=== PATIENT | male | born 1995 | race Hispanic/Latino ===

== ENCOUNTER 2021-10-12 14:43 | Emergency (ER) | payer SELFPAY ==
[2021-10-12 15:55] LABS: Urine Blood Negative (Negative); Urine Glucose Negative (Negative); Urine Protein Negative (Negative)
--- NOTE | 2021-10-12 16:50 | RAD REPORT ---
EXAM DESCRIPTION: US - Scrotum Testicles - 10/12/2021 4:38 pm CLINICAL HISTORY: Testicular pain COMPARISON: None FINDINGS: Right testicle measures 4.5 x 2.1 x 3.5 centimeters. Echotexture is homogeneous. Normal bl ood flow Left testicle measures 4 x 2.4 x 2.8 centimeters. Echotexture is homogeneous. Normal blood flow The epididymides are normal in size and echotexture. Normal blood flow is seen. IMPRESSION: Unremarkable exam
--- NOTE | 2021-10-12 17:00 | ER ---
Nurse's Notes [facility] Name: Trevon Ruiz Age: 25 yrs Sex: Male : 1995 Arrival Date: 10/12/2021 Time: 14:44 Bed 12 Private MD: Diagnosis: Groin pain. Right scrotal pain Presentation: 10/12 15:13 Chief complaint: Patient states: he is having testicular pain that began yesterday ap3 morning. patient is also reporting right testicular swelling. Coronavirus screen: At this time, the client does not indicate any symptoms associated with coronavirus-19. Ebola Screen: No symptoms or risks identified at this time. Initial Sepsis Screen: Does the patient meet any 2 criteria? No. Patient's initial sepsis screen is negative. Does the patient have a suspected source of infection? No. Patient's initial sepsis screen is negative. Risk Assessment: Do you want to hurt yourself or someone else? Patient reports no desire to harm self or others. Onset of symptoms was October 11, 2021. 15:13 Method Of Arrival: Ambulatory ap3 15:13 Acuity: MATILDE 2 ap3 Triage Assessment: 15:18 General: Appears uncomfortable, Behavior is calm, cooperative. Pain: Complains of pain ap3 in right testicle Pain began gradually, 1 day ago. Neuro: Level of Consciousness is awake, alert, obeys commands, Oriented to person, place, time, situation. Cardiovascular: Patient's skin is warm and dry. Respiratory: Airway is patent Respiratory effort is even, unlabored. GI: Patient currently denies nausea, vomiting. Historical: - Allergies: 15:17 No Known Allergies; ap3 - Home Meds: 15:17 None [Active]; ap3 - PMHx: 15:17 None; ap3 - Immunization history:: Client reports receiving the 1st dose of the Covid vaccine. - Social history:: Smoking status: Patient denies any tobacco usage or history of. Screenin:19 Abuse screen: Denies threats or abuse. Nutritional screening: No deficits noted. ap3 Tuberculosis screening: No symptoms or risk factors identified. Vital Signs: 15:12 BP 137 / 85; Pulse 71; Resp 18; Temp 98.0; Pulse Ox 100% ; ap3 ED Course: 14:44 Patient arrived in ED. as 15:17 Triage completed. ap3 15:17 Adelfo De Los Santos NP is PHCP. pm1 15:17 Jesús Salazar MD is Attending Physician. pm1 15:19 Arm band placed on right wrist. ap3 15:19 Patient has correct armband on for positive identification. Placed in gown. Bed in low ap3 position. Call light in reach. Side rails up X 1. Pulse ox on. NIBP on. Door closed. Noise minimized. 16:40 US Scrotum Testicles In Process Unspecified. EDMS 16:43 Loree Blanca, RN is Primary Nurse. iw Administered Medications: No medications were administered Outcome: 17:00 Discharge ordered by . pm1 17:20 Patient left the ED. iw Signatures: Dispatcher [employer] EDMS Parris Vega as Loree Blanca, RN RN iw Adelfo De Los Santos, LEONARDO [employer]ER pm1 Erica Smallwood RN RN ap3
--- NOTE | 2021-10-12 17:00 | EDPHYS ---
Physician Documentation [facility] Name: Trevon Ruiz Age: 25 yrs Sex: Male : 1995 Arrival Date: 10/12/2021 Time: 14:44 Bed 12 Private MD: ED Physician Jesús Salazar HPI: 10/12 15:31 This 25 yrs old Male presents to ER via Ambulatory with complaints of Right pm1 Testicular Pain. 15:31 The patient presents with scrotal pain, of the right side, in the area of the pm1 epidydimis, with swelling. Onset: The symptoms/episode began/occurred yesterday. Modifying factors: The symptoms are alleviated by nothing, the symptoms are aggravated by nothing. Associated signs and symptoms: Pertinent negatives: fever, nausea, vomiting, dysuria, penile discharge. Severity of symptoms: in the emergency department the symptoms are unchanged. The patient has not experienced similar symptoms in the past. The patient has not recently seen a physician. -year-old male presents to the ER with complaints of right testicular pain and swelling onset yesterday patient reports tenderness to the epididymal area. Historical: - Allergies: 15:17 No Known Allergies; ap3 - Home Meds: 15:17 None [Active]; ap3 - PMHx: 15:17 None; ap3 - Immunization history:: Client reports receiving the 1st dose of the Covid vaccine. - Social history:: Smoking status: Patient denies any tobacco usage or history of. ROS: 15:31 Constitutional: Negative for fever, chills, and weight loss, Cardiovascular: Negative pm1 for chest pain, palpitations, and edema, Respiratory: Negative for shortness of breath, cough, wheezing, and pleuritic chest pain, Abdomen/GI: Negative for abdominal pain, nausea, vomiting, diarrhea, and constipation. 15:31 MS/Extremity: Negative for injury and deformity, Skin: Negative for injury, rash, and discoloration. 15:31 Neuro: Negative for headache, weakness, numbness, tingling, and seizure. 15:31 : Positive for testicular pain Negative for urinary symptoms, penile discharge. 15:31 All other systems are negative. Exam: 15:26 : Male external genitalia: normal, no discharge, no swelling, tenderness, of the is pm1 noted, of the epididymis area, that is mild, right side. 15:26 Constitutional: This is a well developed, well nourished patient who is awake, alert, pm1 and in no acute distress. Head/Face: Normocephalic, atraumatic. 15:26 Skin: Warm, dry with normal turgor. Normal color with no rashes, no lesions, and no evidence of cellulitis. MS/ Extremity: Pulses equal, no cyanosis. Neurovascular intact. Full, normal range of motion. 15:26 Cardiovascular: Exam negative for acute changes, Rate: normal, Rhythm: regular, Pulses: no pulse deficits are appreciated. 15:26 Respiratory: Exam negative for acute changes, respiratory distress, shortness of breath, Breath sounds: are clear throughout. 15:26 Neuro: Exam negative for acute changes, Orientation: is normal, Mentation: is normal, Motor: is normal, moves all fours. Vital Signs: 15:12 BP 137 / 85; Pulse 71; Resp 18; Temp 98.0; Pulse Ox 100% ; ap3 MDM: 15:22 Patient medically screened. pm1 15:36 Data reviewed: vital signs. Data interpreted: Pulse oximetry: on room air is 100 %. pm1 Interpretation: normal. 16:59 Counseling: I had a detailed discussion with the patient and/or guardian regarding: the pm1 historical points, exam findings, and any diagnostic results supporting the discharge/admit diagnosis, lab results, radiology results, the need for outpatient follow up, to return to the emergency department if symptoms worsen or persist or if there are any questions or concerns that arise at home. 10/12 15:55 Order name: Urine Dipstick-Ancillary; Complete Time: 15:58 EDMS 10/12 15:26 Order name: US Scrotum Testicles; Complete Time: 16:58 pm1 10/12 15:26 Order name: Urine Dipstick-Ancillary (obtain specimen); Complete Time: 15:55 pm1 Administered Medications: No medications were administered Disposition: 17:26 Co-signature as Attending Physician, Jesús Salazar MD I agree with the assessment and kdr plan of care. Disposition Summary: 10/12/21 17:00 Discharge Ordered Location: Home pm1 Problem: new pm1 Symptoms: have improved pm1 Condition: Stable pm1 Diagnosis - Groin pain. Right scrotal pain pm1 Followup: pm1 - With: Emergency Department - When: As needed - Reason: Worsening of condition Followup: pm1 - With: Private Physician - When: 2 - 3 days - Reason: Recheck today's complaints, Continuance of care, Re-evaluation by your physician Discharge Instructions: - Discharge Summary Sheet pm1 - Testicular Self-Exam pm1 - Scrotal Swelling pm1 Forms: - Medication Reconciliation Form pm1 - Thank You Letter pm1 - Antibiotic Education pm1 - Prescription Opioid Use pm1 - Work release form pm1 Prescriptions: - Diclofenac Sodium 75 mg Oral tablet,delayed release (DR/EC) - take 1 tablet by ORAL route 2 times per day As needed; 30 tablet; Refills: 0, pm1 Product Selection Permitted Signatures: Dispatcher [employer] EDMS Jesús Salazar MD MD kdr Marinas, Patrick, NP [employer] pm1 Erica Smallwood RN RN ap3
[2021-10-12 18:40] VITALS: BP 137/85; TEMP 98; O2SAT 100
== END 2021-10-12 17:20 | disposition home or self-care (01) ==
LOC: ER 14:43
DX: N50.82 Scrotal pain (principal); N50.811 Right testicular pain
CPT/HCPCS: 76870; 81003; 99283